=== PATIENT | female | born 1995 | race Caucasian/White ===

== ENCOUNTER 2017-03-28 17:57 | Emergency (ER) | payer SELFPAY ==
[2017-03-28 19:47] VITALS: BP 105/59
== END 2017-03-28 19:45 | disposition home or self-care (01) ==
LOC: ED 17:57
DX: O23.41 Unspecified infection of urinary tract in pregnancy, first trimester (principal); Z79.899 Other long term (current) drug therapy; Z3A.13 13 weeks gestation of pregnancy
CPT/HCPCS: Q0162